=== PATIENT | male | born 1945 | race Two or more races ===

== ENCOUNTER 2019-07-26 12:20 | Inpatient (IN) | payer OTHER ==
[~2019-07-26] VITALS: Ht 160 cm; Wt 80.7 kg
[2019-09-04] MEDS ORDERED: FENOFIB PO (07:51)
[2019-09-04] MEDS ORDERED: METFORMIN PO (07:51)
[2019-09-04] MEDS ORDERED: DILTIAZEM ER300 MG PO (07:52)
[2019-09-04] MEDS ORDERED: FINASTERIDE5 MG PO (07:52)
[2019-09-04] MEDS ORDERED: DOXAZOSIN MESYLA2 MG PO (07:53)
[2019-09-04] MEDS ORDERED: ADULT LOW DOSE81 M1 PO (07:53)
[2019-09-04] MEDS ORDERED: ZOCOR20 MG PO (07:53)
[2019-09-04] MEDS ORDERED: COZAAR100 MG PO (07:53)
[2019-09-29] MEDS ORDERED: FENOFIBRATE160 MG (08:16)
[2019-09-29] MEDS ORDERED: METFORMIN HCL850 MG (08:16)
[2019-09-29] MEDS ORDERED: ATORVASTATIN CA20 MG (08:17)
[2019-09-29] MEDS ORDERED: VITAMIN D32000 UNI1 PO (08:17)
[2019-09-29] MEDS ORDERED: DILTIAZEM HCL30 MG (08:19)
== END 2019-10-01 15:21 | disposition home or self-care (01) | DRG 707 ==
LOC: EDSTATUS 09-04 07:00 → ADM 09-04 07:00 → SURH 09-29 05:10 → O/R 09-29 05:10 → SURH 09-29 07:00 → SURG 09-29 13:41 → SURH 09-29 15:02
PROVIDERS: ADMIT Urology
PROC: 07BC0ZX Excision of Pelvis Lymphatic, Open Approach, Diagnostic (ICD-10-PCS; 2019-09-29)
PROC: 0VT00ZZ Resection of Prostate, Open Approach (ICD-10-PCS; principal; 2019-09-29 07:00)
DX: C61 Malignant neoplasm of prostate (principal); D62 Acute posthemorrhagic anemia; Z19.1 Hormone sensitive malignancy status

== ENCOUNTER 2020-08-28 09:07 | Outpatient (CLI) | payer OTHER ==
[~2020-08-28 09:07] MED LIST: ADULT LOW DOSE81 M1 PO; ATORVASTATIN CA20 MG; COZAAR100 MG PO; DILTIAZEM ER300 MG PO; DILTIAZEM HCL30 MG; DOXAZOSIN MESYLA2 MG PO; FENOFIB PO; FENOFIBRATE160 MG; FINASTERIDE5 MG PO; METFORMIN HCL850 MG; METFORMIN PO; VITAMIN D32000 UNI1 PO; ZOCOR20 MG PO
== END 2020-08-28 09:15 | disposition home or self-care (01) ==
LOC: NUCLEAR 09:07
PROVIDERS: ATTEND Urology
DX: C61 Malignant neoplasm of prostate (principal)
CPT/HCPCS: 78803; A9503